=== PATIENT | male | born 1970 | race Caucasian/White ===

== ENCOUNTER 2018-02-03 12:30 | Inpatient (IN) | payer MEDICAID ==
[~2018-02-03] VITALS: Ht 182.9 cm; Wt 117.0 kg
[~2018-02-03 12:30] MED LIST: DULO60CA44 PO; HALO1 PO; LAMO100T56 PO; PRAZ2 PO
[2018-02-04 12:37] VITALS: BP 127/72
[2018-02-04 13:10] VITALS: BP 138/81
[2018-02-04] MEDS ORDERED: DULO60CA44 PO (13:21)
[2018-02-04] MEDS ORDERED: CYCL10 PO (13:21)
[2018-02-04] MEDS ORDERED: DICL75TA5 PO (13:21)
[2018-02-04] MEDS ORDERED: GABA-531 PO (13:21)
[2018-02-04] MEDS ORDERED: DIAZ10 PO (13:21)
[2018-02-04] MEDS ORDERED: BUPR1FIL3 SL (13:27)
[2018-02-04] MEDS: LORazepam 2 MG TABLET PO PRN ×2 (14:15→21:09)
[2018-02-04] MEDS ORDERED: MAGNESIUM HYDROXIDE SUSPENSION 30 ML UDCUP PO PRN (16:15)
[2018-02-04] MEDS ORDERED: LOPERAMIDE HCL 2 MG CAPSULE PO PRN (16:15)
[2018-02-04] MEDS ORDERED: GuaiFENesin/D-METHORPHAN [SUGAR-FREE] 200-20MG/10 ML SYRUP UDCUP PO PRN (16:15)
[2018-02-04] MEDS ORDERED: ALBUTEROL SULFATE HFA 90 MCG/PUFF 8 GM INHALER IH PRN (16:15)
[2018-02-04] MEDS ORDERED: MAG HYDROX/AL HYDROX/SIMETH ES 30 ML SUSPENSION UDCUP PO PRN (16:15)
[2018-02-04] MEDS ORDERED: ONDANSETRON HCL 4 MG TABLET PO PRN (16:15)
[2018-02-04] MEDS ORDERED: PETROLATUM,WHITE 71 GM JELLY TP PRN (16:15)
[2018-02-04] MEDS ORDERED: DOCUSATE SODIUM 100 MG CAPSULE PO PRN (16:15)
[2018-02-04] MEDS ORDERED: CloNIDine HCL 0.1 MG TABLET PO PRN (16:15)
[2018-02-04] MEDS ORDERED: IBUPROFEN 400 MG TABLET PO PRN (16:15)
[2018-02-04] MEDS ORDERED: ACETAMINOPHEN 325 MG TABLET PO PRN (16:15)
[2018-02-04] MEDS ORDERED: HYDROCORTISONE 1% 30 GM OINTMENT TP PRN (17:00)
[2018-02-04] MEDS: NICOTINE 14 MG/24 HOUR PATCH TD PRN (17:05)
[2018-02-04] MEDS ORDERED: HALOPERIDOL LACTATE 5 MG/ML VIAL IM ONE (18:45)
[2018-02-04] MEDS ORDERED: DiphenhydrAMINE HCL 50 MG/ML VIAL IM ONE (18:45)
[2018-02-04] MEDS ORDERED: LORazepam 2 MG/ML VIAL IM ONE (18:45)
[2018-02-04] MEDS: ZOLPIDEM TARTRATE 10 MG TABLET PO PRN (21:09)
[2018-02-05 01:22] VITALS: BP 100/74
[2018-02-05 08:16] VITALS: BP 105/70
[2018-02-05] MEDS: DULoxetine HCL 30 MG CAPSULE PO SCH (08:27)
[2018-02-05 08:28] LABS: APPEARANCE,URINE TURBID (CLEAR); BILIRUBIN,URINE NEGATIVE (NEGATIVE); GLUCOSE, URINE (UA) NEGATIVE (NEGATIVE); KETONES,URINE NEGATIVE (NEGATIVE); LEUKOCYTE ESTERASE ,URINE NEGATIVE (NEGATIVE); NITRATE,URINE NEGATIVE (NEGATIVE); OCCULT BLOOD,URINE NEGATIVE (NEGATIVE); PROTEIN,URINE NEGATIVE (NEGATIVE); UROBILINOGEN,URINE 0.2 mg/dL (<=1.0)
[2018-02-05 08:33] LABS: AMPHET/METH SCREEN,URINE NEGATIVE (NEGATIVE); BARBITURATE SCREEN, URINE NEGATIVE (NEGATIVE); BENZODIAZEPINES SCREEN,URINE POSITIVE (NEGATIVE); CANNABINOID SCREEN,URINE POSITIVE (NEGATIVE); COCAINE SCREEN,URINE NEGATIVE (NEGATIVE); METHADONE SCREEN, URINE NEGATIVE (NEGATIVE); OPIATE SCREEN,URINE NEGATIVE (NEGATIVE)
[2018-02-05 08:39] LABS: PHENCYCLIDINE SCREEN,URINE NEGATIVE (NEGATIVE)
[2018-02-05] MEDS: NICOTINE 14 MG/24 HOUR PATCH TD PRN (10:35)
[2018-02-05] MEDS: LORazepam 2 MG TABLET PO PRN ×2 (10:35→16:28)
[2018-02-05 16:00] VITALS: BP 106/65
[2018-02-05] MEDS ORDERED: DiphenhydrAMINE HCL 50 MG/ML VIAL ONE (17:29)
[2018-02-05] MEDS ORDERED: LORazepam 2 MG/ML VIAL ONE (17:29)
[2018-02-05] MEDS ORDERED: HALOPERIDOL LACTATE 5 MG/ML VIAL IM ONE (17:30)
[2018-02-05] MEDS ORDERED: DiphenhydrAMINE HCL 50 MG/ML VIAL IM ONE (17:30)
[2018-02-05] MEDS ORDERED: LORazepam 2 MG/ML VIAL IM ONE (17:30)
[2018-02-05] MEDS ORDERED: HALOPERIDOL LACTATE 5 MG/ML VIAL ONE (17:30)
[2018-02-06 05:33] VITALS: BP 119/76
[2018-02-06] MEDS: LORazepam 2 MG TABLET PO PRN ×4 (05:37→18:54)
[2018-02-06 08:01] VITALS: BP 112/61
[2018-02-06 08:35] LABS: BASOPHILS % (AUTO) 0.5 % (0.0-2.0); HEMATOCRIT 43.7 % (41-53); LYMPHOCYTES # (AUTO) 1.6 K/uL (1.0-4.8); LYMPHOCYTES % (AUTO) 31.6 % (22.0-44.0); MEAN CORPUSCULAR HEMOGLOBIN 33.3 pg (26.0-34.0); MEAN CORPUSCULAR HGB CONC 34.5 G/dL (31.0-37.0); MEAN CORPUSCULAR VOLUME 97 fL (80-100); MONOCYTES # (AUTO) 0.3 K/uL (0.1-1.0); MONOCYTES % (AUTO) 6.4 % (2.0-9.0); NEUTROPHILS # (AUTO) 2.9 K/uL (1.8-7.7); NEUTROPHILS % (AUTO) 56.5 % (40.0-70.0); PLATELET COUNT (AUTO) 190 K/uL (150-450); RED BLOOD CELL COUNT(AUTO) 4.52 MIL/uL (4.50-5.90); RED CELL DISTRIBUTION WIDTH 13.1 % (11.5-14.5)
[2018-02-06 08:44] LABS: HEMOGLOBIN A1C 5.5 % (4.5-6.2)
[2018-02-06 09:08] LABS: ALANINE AMINOTRANSFERASE 38 U/L (12-78); ALBUMIN 3.5 g/dL (3.4-5.0); ALKALINE PHOSPHATASE 92 U/L (46-116); ANION GAP 0 mmol/L (8-16); ASPARTATE AMINOTRANSFERASE 24 U/L (15-37); BILIRUBIN,TOTAL 0.3 mg/dL (0.1-1.0); CALCIUM, TOTAL 8.6 mg/dL (8.8-10.5); CARBON DIOXIDE 35 mmol/L (22-29); CHLORIDE 104 mmol/L (98-107); CHOL/HDL RATIO 4.1 (4.2-7.3); CHOLESTEROL 146 mg/dL (131-200); CREATININE 0.79 mg/dL (0.60-1.30); FREE T4 (FREE THYROXINE) 0.94 ng/dL (0.76-1.46); GLOMERULAR FILTR. RATE CALC > 60 mL/min (>60); GLUCOSE,RANDOM 90 mg/dL (70-110); HDL CHOLESTEROL 36 mg/dL (40-60); LDL CHOL (CALC.) 78 mg/dL (0-130); POTASSIUM 4.6 mmol/L (3.5-5.1); SODIUM SERUM 139 mmol/L (136-145); THYROID STIMULATING HORMONE 1.28 uIU/mL (0.36-3.74); TOTAL PROTEIN, SERUM 6.5 g/dL (6.4-8.2); TRIGLYCERIDES 162 mg/dL (15-150); UREA NITROGEN, BLOOD 12 mg/dL (7-18)
[2018-02-06] MEDS: DULoxetine HCL 30 MG CAPSULE PO SCH (10:41)
[2018-02-06] MEDS: NICOTINE 14 MG/24 HOUR PATCH TD PRN (10:50)
[2018-02-06] MEDS ORDERED: NAPROXEN 500 MG TABLET PO PRN (11:00)
[2018-02-06 16:00] VITALS: BP 120/66
[2018-02-06 16:53] VITALS: BP 118/75
[2018-02-06] MEDS: OxyCODONE HCL/ACETAMINOPHEN 5-325 MG TABLET PO PRN (16:55)
[2018-02-06] MEDS: HALOPERIDOL 5 MG TABLET PO PRN (17:16)
[2018-02-06 17:55] VITALS: BP 116/73
[2018-02-06] MEDS: ZOLPIDEM TARTRATE 10 MG TABLET PO PRN (20:43)
[2018-02-07 05:18] VITALS: BP 138/92
[2018-02-07] MEDS: LORazepam 2 MG TABLET PO PRN ×3 (05:27→17:01)
[2018-02-07] MEDS: OxyCODONE HCL/ACETAMINOPHEN 5-325 MG TABLET PO PRN ×2 (05:27→17:27)
[2018-02-07] MEDS: DICLOFENAC SODIUM 50 MG DR TABLET PO PRN (07:05)
[2018-02-07 08:01] VITALS: BP 108/62
[2018-02-07] MEDS: DULoxetine HCL 30 MG CAPSULE PO SCH (08:13)
[2018-02-07] MEDS: NICOTINE 14 MG/24 HOUR PATCH TD PRN (09:22)
[2018-02-07] MEDS: RisperiDONE 1 MG TABLET PO SCH ×2 (11:10→17:00)
[2018-02-07] MEDS ORDERED: HALOPERIDOL LACTATE 5 MG/ML VIAL IM ONE ×2 (13:00)
[2018-02-07] MEDS ORDERED: LORazepam 2 MG/ML VIAL IM ONE ×2 (13:00)
[2018-02-07] MEDS ORDERED: DiphenhydrAMINE HCL 50 MG/ML VIAL IM ONE ×2 (13:00)
[2018-02-07 16:00] VITALS: BP 112/65
[2018-02-08 04:42] VITALS: BP 123/82
[2018-02-08] MEDS: LORazepam 2 MG TABLET PO PRN ×3 (04:44→18:08)
[2018-02-08] MEDS: OxyCODONE HCL/ACETAMINOPHEN 5-325 MG TABLET PO PRN ×2 (04:45→16:58)
[2018-02-08] MEDS: DICLOFENAC SODIUM 50 MG DR TABLET PO PRN (06:33)
[2018-02-08] MEDS: DULoxetine HCL 30 MG CAPSULE PO SCH (07:56)
[2018-02-08] MEDS: RisperiDONE 1 MG TABLET PO SCH ×4 (07:56→17:00)
[2018-02-08 08:01] VITALS: BP 132/83
[2018-02-08] MEDS: NICOTINE 14 MG/24 HOUR PATCH TD PRN (10:20)
[2018-02-08] MEDS: HALOPERIDOL 5 MG TABLET PO PRN ×2 (14:07→18:08)
[2018-02-08 16:03] VITALS: BP 140/83
[2018-02-08] MEDS: ZOLPIDEM TARTRATE 10 MG TABLET PO PRN (20:16)
[2018-02-09 04:11] VITALS: BP 117/88
[2018-02-09] MEDS: LORazepam 2 MG TABLET PO PRN ×2 (04:18→08:18)
[2018-02-09] MEDS: OxyCODONE HCL/ACETAMINOPHEN 5-325 MG TABLET PO PRN ×2 (04:18→10:20)
[2018-02-09] MEDS: DICLOFENAC SODIUM 50 MG DR TABLET PO PRN (05:58)
[2018-02-09] MEDS: DULoxetine HCL 30 MG CAPSULE PO SCH (08:08)
[2018-02-09] MEDS: HALOPERIDOL 5 MG TABLET PO PRN (08:08)
[2018-02-09] MEDS: RisperiDONE 1 MG TABLET PO SCH (08:09)
[2018-02-09] MEDS: NICOTINE 14 MG/24 HOUR PATCH TD PRN (08:16)
[2018-02-09 08:51] VITALS: BP 139/80
[2018-02-09 10:21] VITALS: BP 135/82
[2018-02-09 11:23] VITALS: BP 111/75
[2018-02-09] MEDS ORDERED: RISP1 PO (11:23)
[2018-03-06] MEDS ORDERED: BUPR1FIL3 SL (17:25)
[2018-03-06] MEDS ORDERED: ARIP10TA8 PO (17:25)
[2018-03-06] MEDS ORDERED: DULO60CA44 PO (17:26)
[2018-03-06] MEDS ORDERED: NICO1PAT49 TD (17:27)
== END 2018-02-09 12:00 | disposition home or self-care (01) | DRG 750 ==
LOC: B3A 02-04 12:52
PROVIDERS: ADMIT Psychiatry & Neurology Psychiatry; ATTEND Psychiatry & Neurology Psychiatry
DX: F25.1 Schizoaffective disorder, depressive type (principal); R45.851 Suicidal ideations; E78.1 Pure hyperglyceridemia; F10.10 Alcohol abuse, uncomplicated; F12.90 Cannabis use, unspecified, uncomplicated; F17.200 Nicotine dependence, unspecified, uncomplicated; F32.9 Major depressive disorder, single episode, unspecified; G89.29 Other chronic pain; M19.90 Unspecified osteoarthritis, unspecified site; E55.9 Vitamin D deficiency, unspecified; F41.9 Anxiety disorder, unspecified; M54.9 Dorsalgia, unspecified; M54.30 Sciatica, unspecified side; Z88.8 Allergy status to other drugs, medicaments and biological substances; Z28.21 Immunization not carried out because of patient refusal; Z91.013 Allergy to seafood; Z79.899 Other long term (current) drug therapy; Z71.41 Alcohol abuse counseling and surveillance of alcoholic; Z71.51 Drug abuse counseling and surveillance of drug abuser
CPT/HCPCS: 80307; 83036; 84439; 84443; J1200; J1630; J2060